=== PATIENT | female | born 1960 | race Caucasian/White ===

== ENCOUNTER 2018-01-28 12:38 | Outpatient (CLI) | payer BC | END 2018-01-28 12:39 | disposition home or self-care (01) | LOC: BICMAMMO 12:38 | PROVIDERS: ATTEND Obstetrics & Gynecology | DX: Z12.31 Encounter for screening mammogram for malignant neoplasm of breast (principal); Z80.3 Family history of malignant neoplasm of breast | CPT/HCPCS: 77063; 77067 ==

== ENCOUNTER 2019-04-27 15:00 | Outpatient (CLI) | payer BC | END 2019-04-27 15:01 | disposition home or self-care (01) | LOC: SLEEPLAB 15:00 | PROVIDERS: ATTEND Family Medicine | DX: G47.9 Sleep disorder, unspecified (principal); F32.9 Major depressive disorder, single episode, unspecified; I10 Essential (primary) hypertension; G47.33 Obstructive sleep apnea (adult) (pediatric) | CPT/HCPCS: 95806 ==

== ENCOUNTER 2020-10-21 09:44 | Outpatient (CLI) | payer BC | END 2020-10-21 09:45 | disposition home or self-care (01) | LOC: BICMAMMO 09:44 | PROVIDERS: ATTEND Family Medicine | DX: Z12.31 Encounter for screening mammogram for malignant neoplasm of breast (principal); Z80.3 Family history of malignant neoplasm of breast | CPT/HCPCS: 77063; 77067 ==

== ENCOUNTER 2023-02-05 09:13 | Outpatient (CLI) | payer BC | END 2023-02-05 09:14 | disposition home or self-care (01) | LOC: BICMAMMO 09:13 | PROVIDERS: ATTEND Family Medicine | DX: Z12.31 Encounter for screening mammogram for malignant neoplasm of breast (principal); Z80.3 Family history of malignant neoplasm of breast | CPT/HCPCS: 77063; 77067 ==